=== PATIENT | female | born 1980 | race Caucasian/White ===

== ENCOUNTER 2016-10-06 10:51 | Emergency (ER) | payer OTHER ==
--- NOTE | 2016-10-06 12:27 | ED NURSING NOTES ---
Clinical Report - Nurses [facility] [address] [place] [address] 10/06/2016 10:50 Patient: GUSTABO GARCIA TRIAGE Triage time 11:30 Oct 06 2016. Acuity: LEVEL 3. Chief Complaint: SKIN RASH and SKIN LESION and INSECT BITE Alert. JEANETTE COMA SCORE: Jeanette Coma Scale: 15- eyes open spontaneously (4); best verbal response- oriented x 4 (5); best motor response- obeys commands (6). --11:45 Miguel Boss R.N. 11:33 10/06/16. BP: 115/64. HR: 71. RR: 16. O2 saturation: 98% on room air. Temp: 97.8 F. Pain level now: 5/10. Additional comments: R- ear pain. --11:45 Miguel Boss R.N. Weight: 70.3 kg stated. Height/Length: 62 inches Per Patient. BMI: 28.4. --11:33 Miguel Boss R.N. Medications Cloxacillin 500mg, 2x a day. --11:37 Miguel Boss R.N. Chlorphnamine 4mg, 2x a day. --11:39 Miguel Boss R.N. Medication/allergy information source: the patient. --11:45 Miguel Boss R.N. Allergies [facility] Chicken. --11:45 Miguel Boss R.N. The following entry was struck by Miguel Boss R.N., 11:45 (10/06/16) Reason - other. <<STRICKEN ENTRY-- No Known Drug Allergy. --11:36 Miguel Boss R.N. --END STRIKE>>. History Arrived by private vehicle. Historian: patient. Accompanied by family. Primary physician (Daniel Duffy). ( Rash/Insect Bites BLE's and some on BUE's that are painful. Recent trip to the [facility] returning yesterday.). Reported as located on the right arm, right leg and left leg. This started yesterday. It is described as burning and painful. She had a recent insect bite. She has had itching. ( earaches, bite on legs). 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 SOCIAL HX: Heavy tobacco smoker (cigarette)- less than 1 pack per day. No alcohol use or drug use. No infectious disease exposure. ABUSE ASSESSMENT: No report of abuse. FALL RISK ASSESSMENT: Fall risk assessment completed. No fall risk identified. NUTRITIONAL RISK ASSESSMENT: The nutritional risk assessment revealed no deficiencies. FUNCTIONAL ASSESSMENT: Functional assessment: no impairments noted. LEARNING NEEDS ASSESSMENT: The learning needs assessment revealed no barriers. SKIN INTEGRITY ASSESSMENT: Skin integrity risk assessment completed. No skin integrity risk identified. --11:45 Miguel Boss R.N. Interventions ID and allergy band on patient. To treatment room. --11:45 Miguel Boss R.N. PHYSICAL ASSESSMENT Ambulatory to room. GENERAL / NEURO / PSYCH: Alert. Oriented X 4. HEENT: ( Ear Pain). RESPIRATORY: Respirations not labored. CVS: Pulses within normal limits. GI / : Abdomen nontender. SKIN: Skin is intact, warm and dry. Skin tenderness present. ( Insect bites on legs and a nasty bite in (R) Ear.). --11:46 Miguel Boss R.N. NURSING PROGRESS NOTES Reassurance given to the patient. Patient identifiers checked. Call light placed in reach. Bed placed in lowest position. Brakes of bed on. Patient ready for evaluation- chart flagged and ED physician notified. --11:47 Miguel Boss R.N. DISPOSITION / DISCHARGE Departure time: 1230. --13:46 Miguel Boss R.N. 12:30 10/06/16. BP: 111/73. HR: 73. RR: 16. O2 saturation: 98% on room air. Temp: 98.2 F (oral). Pain level now: 09/19. Additional comments: (R)Ear pain. --13:46 Miguel Boss R.N. 12:30. No learning barriers present. Discharge instructions provided and reviewed with the parent. Reviewed medication(s) (prescription given to pt). Reviewed wound care instructions. Reviewed referrals for followup. Patient verbalized understanding. Written instructions provided in Polish. The patient was discharged by the physician. She was discharged home and accompanied by parent. She left the Emergency Department ambulatory and via private vehicle. Spouse driving. --13:48 Miguel Boss R.N. Locked/Released at 10/06/2016 13:49 by Miguel Boss R.N.
--- NOTE | 2016-10-06 12:27 | ED CLINICAL REPORT ---
Clinical Report - Physicians/Mid Levels [facility] [address] [place] [address] 10/06/2016 10:50 Patient: GUSTABO GARCIA Time Seen: 12:22; initial patient contact. Arrived- By private vehicle. Historian- patient. HISTORY OF PRESENT ILLNESS Location of injuries- right foot and left foot (legs). Chief Complaint: ANT BITE. The injury occurred 2 days ago[place] This was an "unprovoked" attack. (fire ants in [facility]). The patient has had swelling. She has had drainage. She has had itching. She has had a skin rash. 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 REVIEW OF SYSTEMS The patient has had swelling, and tingling. All systems otherwise negative, except as recorded above. PAST HISTORY See nurses notes. Tetanus immunization status is up-to-date. Problems: Ureterolithiasis. Kidney stones in 2004. Dental Abscess. Immunizations. LNMP - Last Normal Menstrual Period. Medications: Chlorphnamine 4mg, 2x a day. Cloxacillin 500mg, 2x a day. Allergies: Phillipine Chicken. SOCIAL HISTORY Never smoker. No alcohol use or drug use. Recent travel. ADDITIONAL NOTES The nursing notes have been reviewed with agreement regarding the chief complaint, HPI, ROS, PMH and patient medications and allergies. PHYSICAL EXAM Vital Signs: 10/06/2016 12:30 BP: 111/73. HR: 73. RR: 16. O2 saturation: 98%. Temp: 98.2 F. Pain level now: 09/19. 10/06/2016 11:33 BP: 115/64. HR: 71. RR: 16. O2 saturation: 98%. Temp: 97.8 F. Pain level now: 09/19. Have been reviewed. Appearance: Alert. Oriented X3. No acute distress. Eyes: Eyes normal inspection. ENT: Ears normal on inspection. Neck: Normal inspection. CVS: Heart sounds normal. Pulses normal. Respiratory: Chest normal on inspection. Breath sounds normal. Skin: (multiple insect bites to the feet bilaterally). Extremities: Right foot: located in the distal aspect of the foot. Neurovascular intact distally. (she has several lesions to the feet both right and left with pustules and erythema). Left foot: mild erythema, tenderness and swelling of the distal aspect of the foot. Neuro: Oriented X 3. CLINICAL IMPRESSION Acute and recurrent suppurative right otitis media. No perforation of right tympanic membrane. Ant bite to the right lower leg, right ankle, left lower leg and left ankle. Right. Left. Acute localized right otitis externa. Drainage present. INSTRUCTIONS Protect wound and keep wound area clean. You may wash wounds briefly, then dry. No strenuous activity. Warnings: COMPLICATIONS: Complications from this condition are possible. Future problems may include infection, scarring and pain. It is important to follow up with a physician for further evaluation and treatment. Your Current Medications: CONTINUE TAKING THE FOLLOWING MEDICATIONS: Chlorphnamine* : 4mg 2x a day. Cloxacillin* : 500mg 2x a day. Prescription Medications: Bactrim DS 800 mg / 160 mg: take 1 tablet orally every 12 hours for 10 days. No refill. Substitution is permissible. Cortisporin otic suspension: instill 2 drops into the affected ear every 8 hours for 5 days until symptoms improve. Dispense one (1) bottle. No refills. Substitution is permissible. Zyrtec 10 mg: take 1 tablet orally every day for 14 days, as needed for itching. Dispense thirty (30). No refill. Substitution is permissible. 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 Call for an appointment. Reason for referral: otitis media/externa and infected fire ant bites. Understanding of the discharge instructions verbalized by patient. (Electronically signed by Mechelle Gallegos PA-C 10/06/2016 23:57)
--- NOTE | 2016-10-06 12:27 | ED NURSING NOTES ---
Clinical Report - Nurses [facility] [address] [place] [address] 10/06/2016 10:50 Patient: GUSTABO GARCIA TRIAGE Triage time 11:30 Oct 06 2016. Acuity: LEVEL 3. Chief Complaint: SKIN RASH and SKIN LESION and INSECT BITE Alert. JEANETTE COMA SCORE: Jeanette Coma Scale: 15- eyes open spontaneously (4); best verbal response- oriented x 4 (5); best motor response- obeys commands (6). --11:45 Miguel Boss R.N. 11:33 10/06/16. BP: 115/64. HR: 71. RR: 16. O2 saturation: 98% on room air. Temp: 97.8 F. Pain level now: 5/10. Additional comments: R- ear pain. --11:45 Miguel Boss R.N. Weight: 70.3 kg stated. Height/Length: 62 inches Per Patient. BMI: 28.4. --11:33 Miguel Boss R.N. Medications Cloxacillin 500mg, 2x a day. --11:37 Miguel Boss R.N. Chlorphnamine 4mg, 2x a day. --11:39 Miguel Boss R.N. Medication/allergy information source: the patient. --11:45 Miguel Boss R.N. Allergies [facility] Chicken. --11:45 Miguel Boss R.N. The following entry was struck by Miguel Boss R.N., 11:45 (10/06/16) Reason - other. <<STRICKEN ENTRY-- No Known Drug Allergy. --11:36 Miguel Boss R.N. --END STRIKE>>. History Arrived by private vehicle. Historian: patient. Accompanied by family. Primary physician (Daniel Duffy). ( Rash/Insect Bites BLE's and some on BUE's that are painful. Recent trip to the [facility] returning yesterday.). Reported as located on the right arm, right leg and left leg. This started yesterday. It is described as burning and painful. She had a recent insect bite. She has had itching. ( earaches, bite on legs). 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 SOCIAL HX: Heavy tobacco smoker (cigarette)- less than 1 pack per day. No alcohol use or drug use. No infectious disease exposure. ABUSE ASSESSMENT: No report of abuse. FALL RISK ASSESSMENT: Fall risk assessment completed. No fall risk identified. NUTRITIONAL RISK ASSESSMENT: The nutritional risk assessment revealed no deficiencies. FUNCTIONAL ASSESSMENT: Functional assessment: no impairments noted. LEARNING NEEDS ASSESSMENT: The learning needs assessment revealed no barriers. SKIN INTEGRITY ASSESSMENT: Skin integrity risk assessment completed. No skin integrity risk identified. --11:45 Miguel Boss R.N. Interventions ID and allergy band on patient. To treatment room. --11:45 Miguel Boss R.N. PHYSICAL ASSESSMENT Ambulatory to room. GENERAL / NEURO / PSYCH: Alert. Oriented X 4. HEENT: ( Ear Pain). RESPIRATORY: Respirations not labored. CVS: Pulses within normal limits. GI / : Abdomen nontender. SKIN: Skin is intact, warm and dry. Skin tenderness present. ( Insect bites on legs and a nasty bite in (R) Ear.). --11:46 Miguel Boss R.N. NURSING PROGRESS NOTES Reassurance given to the patient. Patient identifiers checked. Call light placed in reach. Bed placed in lowest position. Brakes of bed on. Patient ready for evaluation- chart flagged and ED physician notified. --11:47 Miguel Boss R.N. DISPOSITION / DISCHARGE Departure time: 1230. --13:46 Miguel Boss R.N. 12:30 10/06/16. BP: 111/73. HR: 73. RR: 16. O2 saturation: 98% on room air. Temp: 98.2 F (oral). Pain level now: 09/19. Additional comments: (R)Ear pain. --13:46 Miguel Boss R.N. 12:30. No learning barriers present. Discharge instructions provided and reviewed with the parent. Reviewed medication(s) (prescription given to pt). Reviewed wound care instructions. Reviewed referrals for followup. Patient verbalized understanding. Written instructions provided in Urdu. The patient was discharged by the physician. She was discharged home and accompanied by parent. She left the Emergency Department ambulatory and via private vehicle. Spouse driving. --13:48 Miguel Boss R.N. Locked/Released at 10/06/2016 13:49 by Miguel Boss R.N.
--- NOTE | 2016-10-06 12:27 | ED CLINICAL REPORT ---
Clinical Report - Physicians/Mid Levels [facility] [address] [place] [address] 10/06/2016 10:50 Patient: GUSTABO GARCIA Time Seen: 12:22; initial patient contact. Arrived- By private vehicle. Historian- patient. HISTORY OF PRESENT ILLNESS Location of injuries- right foot and left foot (legs). Chief Complaint: ANT BITE. The injury occurred 2 days ago. [place] This was an "unprovoked" attack. (fire ants in [facility]). The patient has had swelling. She has had drainage. She has had itching. She has had a skin rash. 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 REVIEW OF SYSTEMS The patient has had swelling, and tingling. All systems otherwise negative, except as recorded above. PAST HISTORY See nurses notes. Tetanus immunization status is up-to-date. Problems: Ureterolithiasis. Kidney stones in 2004. Dental Abscess. Immunizations. LNMP - Last Normal Menstrual Period. Medications: Chlorphnamine 4mg, 2x a day. Cloxacillin 500mg, 2x a day. Allergies: Phillipine Chicken. SOCIAL HISTORY Never smoker. No alcohol use or drug use. Recent travel. ADDITIONAL NOTES The nursing notes have been reviewed with agreement regarding the chief complaint, HPI, ROS, PMH and patient medications and allergies. PHYSICAL EXAM Vital Signs: 10/06/2016 12:30 BP: 111/73. HR: 73. RR: 16. O2 saturation: 98%. Temp: 98.2 F. Pain level now: 09/19. 10/06/2016 11:33 BP: 115/64. HR: 71. RR: 16. O2 saturation: 98%. Temp: 97.8 F. Pain level now: 09/19. Have been reviewed. Appearance: Alert. Oriented X3. No acute distress. Eyes: Eyes normal inspection. ENT: Ears normal on inspection. Neck: Normal inspection. CVS: Heart sounds normal. Pulses normal. Respiratory: Chest normal on inspection. Breath sounds normal. Skin: (multiple insect bites to the feet bilaterally). Extremities: Right foot: located in the distal aspect of the foot. Neurovascular intact distally. (she has several lesions to the feet both right and left with pustules and erythema). Left foot: mild erythema, tenderness and swelling of the distal aspect of the foot. Neuro: Oriented X 3. CLINICAL IMPRESSION Acute and recurrent suppurative right otitis media. No perforation of right tympanic membrane. Ant bite to the right lower leg, right ankle, left lower leg and left ankle. Right. Left. Acute localized right otitis externa. Drainage present. INSTRUCTIONS Protect wound and keep wound area clean. You may wash wounds briefly, then dry. No strenuous activity. Warnings: COMPLICATIONS: Complications from this condition are possible. Future problems may include infection, scarring and pain. It is important to follow up with a physician for further evaluation and treatment. Your Current Medications: CONTINUE TAKING THE FOLLOWING MEDICATIONS: Chlorphnamine* : 4mg 2x a day. Cloxacillin* : 500mg 2x a day. Prescription Medications: Bactrim DS 800 mg / 160 mg: take 1 tablet orally every 12 hours for 10 days. No refill. Substitution is permissible. Cortisporin otic suspension: instill 2 drops into the affected ear every 8 hours for 5 days until symptoms improve. Dispense one (1) bottle. No refills. Substitution is permissible. Zyrtec 10 mg: take 1 tablet orally every day for 14 days, as needed for itching. Dispense thirty (30). No refill. Substitution is permissible. 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 Call for an appointment. Reason for referral: otitis media/externa and infected fire ant bites. Understanding of the discharge instructions verbalized by patient. (Electronically signed by Mechelle Gallegos PA-C 10/06/2016 23:57)
--- NOTE | 2016-10-06 23:57 | ED MED RECONCILIATION SUMMARY ---
Patient: GUSTABO GARCIA Medication Reconciliation Report [facility] VisitID: [id number] [address] [place] [address] 36y, F Registration Date/Time: 10/06/2016 Weight: 70.3 kg Height/Length: 62 in. BMI: 28.4 ALLERGIES: Phillipine Chicken The patient's Home Medications are listed below: CONTINUE TAKING THE FOLLOWING MEDICATIONS: Chlorphnamine 4mg, 2x a day Cloxacillin 500mg, 2x a day The source(s) of the original Home Medication information: patient The following Medications were given to the patient in the Emergency Department: None. The following Medications were prescribed to the patient: Bactrim DS 800 mg / 160 mg: take 1 tablet orally every 12 hours for 10 days. No refill. Substitution is permissible. -- Mechelle Gallegos PA-C Cortisporin otic suspension: instill 2 drops into the affected ear every 8 hours for 5 days until symptoms improve. Dispense one (1) bottle. No refills. Substitution is permissible. -- Mechelle Gallegos PA-C Zyrtec 10 mg: take 1 tablet orally every day for 14 days, as needed for itching. Dispense thirty (30). No refill. Substitution is permissible. -- Mechelle Glalegos PA-C
--- NOTE | 2016-10-06 23:57 | ED DISCHARGE INSTRUCTIONS ---
Patient: GUSTABO GARCIA General Instructions [facility] VisitID: [id number] [place] [address] 36y, F Registration Date/Time: 10/06/2016 Acute and recurrent suppurative right otitis media. No perforation of right tympanic membrane. Ant bite to the right lower leg, right ankle, left lower leg and left ankle. Right. Left. Acute localized right otitis externa. Drainage present. INSTRUCTIONS Protect wound and keep wound area clean. You may wash wounds briefly, then dry. No strenuous activity. Warnings: COMPLICATIONS: Complications from this condition are possible. Future problems may include infection, scarring and pain. It is important to follow up with a physician for further evaluation and treatment. Your Current Medications: CONTINUE TAKING THE FOLLOWING MEDICATIONS: Chlorphnamine* : 4mg 2x a day. Cloxacillin* : 500mg 2x a day. Prescription Medications: Bactrim DS 800 mg / 160 mg: take 1 tablet orally every 12 hours for 10 days. No refill. Substitution is permissible. Cortisporin otic suspension: instill 2 drops into the affected ear every 8 hours for 5 days until symptoms improve. Dispense one (1) bottle. No refills. Substitution is permissible. Zyrtec 10 mg: take 1 tablet orally every day for 14 days, as needed for itching. Dispense thirty (30). No refill. Substitution is permissible. 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 Call for an appointment. Reason for referral: otitis media/externa and infected fire ant bites. Understanding of the discharge instructions verbalized by patient. ADDITIONAL INFORMATION Insect Sting:Local Reaction You have been stung or bitten by an insect. The insects venom or body fluid is causing your skin to react in the area where you were stung or bitten. This often causes redness, itching and swelling. This reaction will fade over a few hours to a few days. An insect bite/sting can become infected 1-3 days later, so watch for the signs below. Sometimes it is hard to tell the difference between a local reaction to the insect bite/sting and an early infection, so antibiotics may be started. Home Care: If itching is a problem, avoid things that heat up your skin (hot showers or baths, direct sunlight) since this will make itching worse. An ice pack (ice cubes in a plastic bag, wrapped in a towel) will reduce local areas of redness and itching. Lanacaine cream or Solarcaine spray (or other product containing "benzocaine") will reduce the itching. Oral Benadryl (diphenhydramine) is an antihistamine available at drug and grocery stores. Unless a prescription antihistamine was given, Benadryl may be used to reduce itching if large areas of the skin are involved. Use lower doses during the daytime and higher doses at bedtime since the drug may make you sleepy. [NOTE: Do not use Benadryl if you have glaucoma or if you are a man with trouble urinating due to an enlarged prostate.] Claritin (loratadine) is an antihistamine that causes less drowsiness and is a good alternative for daytime use. If oral ANTIBIOTICS were prescribed, be sure to take them until finished. You may use acetaminophen (Tylenol) or ibuprofen (Motrin, Advil) to control pain, unless another pain medicine was prescribed. [NOTE: If you have chronic liver or kidney disease or ever had a stomach ulcer or GI bleeding, talk with your doctor before using these medicines.] Preventing Future Reactions: Future reactions could be worse than this one, so try to avoid situations where you might be stung again. Be aware that honeybees nest in trees. Wasps and yellow jackets nest in the ground, trees or roof eaves. If you are stung by a honeybee a stinger will remain in your skin. Wasps, yellow jackets, hornets do not leave a stinger behind. Move away from the nest area immediately. The stinger of a honeybee releases a substance that will attract other bees to you. Once you are away from the nest, then remove the stinger as quickly as possible. After any sting, you may apply ice and take Benadryl or other antihistamine. If you develop any of the warning signs below, seek help immediately. If you are at high risk for another sting or if your reaction included dizziness, fainting or trouble breathing or swallowing, ask your doctor for an Insect Allergy Kit. Follow Up with your doctor or this facility in two days if your symptoms do not start to improve. Get Prompt Medical Attention if any of the following occur: Spreading areas of itching, redness or swelling New or worse swelling in the face, eyelids, lips, mouth, throat or tongue Trouble swallowing or breathing Dizziness, weakness or fainting Signs of infection: Spreading redness Increased pain or swelling Fever of 100.4F (38C) or higher, or as directed by your healthcare provider Colored fluid draining from the wound External Ear Infection [Adult] This is an infection in the ear canal due to an overgrowth of bacteria or fungus. This often occurs a few days after water gets trapped in the ear canal (swimming or bathing). It may also occur after cleaning too deeply in the ear canal with a cotton swab or other object. Sometimes hair care products get into the ear canal and cause this problem. There may be itching, redness, drainage, or swelling of the ear canal and temporary loss of hearing. Home Care: Do not try to clean the ear canal. That could push pus and bacteria deeper into the canal. Use the drops prescribed to reduce swelling and fight the infection. If an EAR WICK was placed in the ear canal, apply drops right onto the end of the wick. The wick will draw the medicine into the ear canal even if it is swollen closed. Do not allow water to get into your ear when bathing. No swimming during this time. A cotton ball may be loosely placed in the outer ear to absorb any drainage. You may use acetaminophen (Tylenol) or ibuprofen (Motrin, Advil) to control pain, unless another medicine was prescribed. [NOTE: If you have chronic liver or kidney disease or ever had a stomach ulcer or GI bleeding, talk with your doctor before using these medicines.] Preventing Future Infections: You can usually avoid this problem by using an eardrop that removes the water from your ear canal when you feel there is water trapped there. You can get these drops over the counter (Swim Ear, Aqua Ear and other brands). Follow Up with your doctor or this facility in one week or as instructed by our staff. Get Prompt Medical Attention if any of the following occur: Ear pain becomes worse or does not begin to improve after 3 days of treatment Redness or swelling of the outer ear occurs or gets worse Headache, painful or stiff neck, Feeling drowsy or confused Fever of 100.4F (38C) or higher, or as directed by your healthcare provider Seizure Middle Ear Infection (Adult) You have an infection of the middle ear (the space behind the eardrum). It can occur as a result of the common cold. This is because congestion can block the internal passage (eustachian tube) that drains fluid from the middle ear. When the middle ear fills with fluid, bacteria can grow there and cause an infection. Oral antibiotics are used to treat this illness, not ear drops. Symptoms usually start to improve within 1-2 days of treatment. Home Care: Finish all of the antibiotic medicine prescribed, even though you may feel better after the first few days. You may use acetaminophen (Tylenol) or ibuprofen (Motrin, Advil) to control pain, unless something else was prescribed. [NOTE: If you have chronic liver or kidney disease or have ever had a stomach ulcer or GI bleeding, talk with your doctor before using these medicines.] (Do not give aspirin to anyone under 18 years of age who is ill with a fever. It may cause severe liver damage.) Follow Up with your doctor or this facility in two weeks if all symptoms have not cleared, or if hearing does not return to normal within one month. Get Prompt Medical Attention if any of the following occur: Ear pain gets worse or does not improve after three days of treatment Unusual drowsiness or confusion Neck pain, stiff neck or headache Fluid or blood draining from the ear canal Fever of 100.4F (38C) or higher after 3 days of antibiotics, or as directed by your healthcare provider Convulsion (seizure) Sulfamethoxazole, Trimethoprim Oral tablet What is this medicine? SULFAMETHOXAZOLE; TRIMETHOPRIM or SMX-TMP (suhl fuh meth OK christopher zohl; trye METH oh prim) is a combination of a sulfonamide antibiotic and a second antibiotic, trimethoprim. It is used to treat or prevent certain kinds of bacterial infections. It will not work for colds, flu, or other viral infections. How should I use this medicine? Take this medicine by mouth with a full glass of water. Follow the directions on the prescription label. Take your medicine at regular intervals. Do not take it more often than directed. Do not skip doses or stop your medicine early. Talk to your ice guard inspector regarding the use of this medicine in children. Special care may be needed. This medicine has been used in children as young as 2 months of age. What side effects may I notice from receiving this medicine? Side effects that you should report to your doctor or health animal care technician as soon as possible: allergic reactions like skin rash or hives, swelling of the face, lips, or tongue breathing problems fever or chills, sore throat irregular heartbeat, chest pain joint or muscle pain pain or difficulty passing urine red pinpoint spots on skin redness, blistering, peeling or loosening of the skin, including inside the mouth unusual bleeding or bruising unusually weak or tired yellowing of the eyes or skin Side effects that usually do not require medical attention (report to your doctor or health animal care technician if they continue or are bothersome): diarrhea dizziness headache loss of appetite nausea, vomiting nervousness What may interact with this medicine? Do not take this medicine with any of the following medications: aminobenzoate potassium dofetilide metronidazole This medicine may also interact with the following medications: LOS inhibitors like benazepril, enalapril, lisinopril, and ramipril cyclosporine digoxin diuretics indomethacin medicines for diabetes methenamine methotrexate phenytoin potassium supplements pyrimethamine sulfinpyrazone tricyclic antidepressants warfarin What if I miss a dose? If you miss a dose, take it as soon as you can. If it is almost time for your next dose, take only that dose. Do not take double or extra doses. Where should I keep my medicine? Keep out of the reach of children. Store at room temperature between 20 to 25 degrees C (68 to 77 degrees F). Protect from light. Throw away any unused medicine after the expiration date. What should I tell my health care provider before I take this medicine? They need to know if you have any of these conditions: anemia asthma being treated with anticonvulsants if you frequently drink alcohol containing drinks kidney disease liver disease low level of folic acid or [id number] dehydrogenase poor nutrition or malabsorption porphyria severe allergies thyroid disorder an unusual or allergic reaction to sulfamethoxazole, trimethoprim, sulfa drugs, other medicines, foods, dyes, or preservatives or trying to get breast-feeding What should I watch for while using this medicine? Tell your doctor or health animal care technician if your symptoms do not improve. Drink several glasses of water a day to reduce the risk of kidney problems. Do not treat diarrhea with over the counter products. Contact your doctor if you have diarrhea that lasts more than 2 days or if it is severe and watery. This medicine can make you more sensitive to the sun. Keep out of the sun. If you cannot avoid being in the sun, wear protective clothing and use a sunscreen. Do not use sun lamps or tanning beds/booths. You have been given the following additional information: Allergic Reaction, Insect (Local) External Ear Infection (Adult) Otitis Media, Abx Tx (Adult) Sulfamethoxazole, Trimethoprim Oral tablet No strenuous activity. (Electronically signed by Mechelle Gallegos PA-C 10/06/2016 23:57)
--- NOTE | 2016-10-06 23:57 | ED MAR SUMMARY ---
..... Medication Administration Record [facility] [address] [place], [place] [id number] Patient: GUSTABO GARCIA Visit ID: [id number] 36y, F Weight: 70.3 kg Height/Length: 62 in BMI: 28.4 ALLERGIES: [employer]
--- NOTE | 2016-10-06 23:57 | ED MED RECONCILIATION SUMMARY ---
Patient: GUSTABO GARCIA Medication Reconciliation Report Located Within [facility] VisitID: [id number] [address] [place] [address] 36y, F Registration Date/Time: 10/06/2016 Weight: 70.3 kg Height/Length: 62 in. BMI: 28.4 ALLERGIES: [employer] The patient's Home Medications are listed below: CONTINUE TAKING THE FOLLOWING MEDICATIONS: Chlorphnamine 4mg, 2x a day Cloxacillin 500mg, 2x a day The source(s) of the original Home Medication information: patient The following Medications were given to the patient in the Emergency Department: None. The following Medications were prescribed to the patient: Bactrim DS 800 mg / 160 mg: take 1 tablet orally every 12 hours for 10 days. No refill. Substitution is permissible. -- Mechelle Gallegos PA-C Cortisporin otic suspension: instill 2 drops into the affected ear every 8 hours for 5 days until symptoms improve. Dispense one (1) bottle. No refills. Substitution is permissible. -- Mechelle Gallegos PA-C Zyrtec 10 mg: take 1 tablet orally every day for 14 days, as needed for itching. Dispense thirty (30). No refill. Substitution is permissible. -- Mechelle Gallegos PA-C
--- NOTE | 2016-10-06 23:57 | ED MAR SUMMARY ---
..... Medication Administration Record [facility] [address] [place], [place] [id number] Patient: GUSTABO GARCIA Visit ID: [id number] 36y, F Weight: 70.3 kg Height/Length: 62 in BMI: 28.4 ALLERGIES: [employer]
== END 2016-10-06 12:30 | disposition home or self-care (01) ==
LOC: ED SRH 10:51
DX: S80.861A Insect bite (nonvenomous), right lower leg, initial encounter (principal); S90.561A Insect bite (nonvenomous), right ankle, initial encounter; S80.862A Insect bite (nonvenomous), left lower leg, initial encounter; S90.562A Insect bite (nonvenomous), left ankle, initial encounter; H66.007 Acute suppurative otitis media without spontaneous rupture of ear drum, recurrent, unspecified ear; H60.91 Unspecified otitis externa, right ear; Z79.899 Other long term (current) drug therapy